=== PATIENT | male | born 1965 | race Two or more races ===

== ENCOUNTER 2022-07-21 21:05 | Emergency (ER) | payer OTHER ==
[~2022-07-21] VITALS: Ht 170.2 cm; Wt 86.2 kg
[2022-07-21 22:00] VITALS: BP 154/92
[2022-07-21] MEDS ORDERED: AMOX500C2 PO (22:41)
[2022-07-21] MEDS ORDERED: BENZ-13 PO (22:41)
[2022-07-21] MEDS ORDERED: ALBU18HF2 INH (22:41)
--- NOTE | 2022-07-21 22:42 | NUR ---
Patient discharged to home in stable condition. Written and verbal after care instructions given. Patient verbalizes understanding of instruction.
== END 2022-07-21 23:09 | disposition home or self-care (01) ==
LOC: ER 21:07
DX: J02.0 Streptococcal pharyngitis (principal); J45.909 Unspecified asthma, uncomplicated; I10 Essential (primary) hypertension; Z60.2 Problems related to living alone